=== PATIENT | female | born 1985 | race Caucasian/White ===

== ENCOUNTER 2021-08-29 14:20 | Emergency (ER) | payer OTHER, SELFPAY ==
--- NOTE | 2021-08-29 14:27 | ED.URI ---
HPI - URI/Sore Throat General Chief Complaint: Upper Respiratory Infection Stated Complaint: bodyache,runny nose,throat irritation Time Seen by Provider: 08/29/21 14:27 Source: patient and RN notes reviewed History of Present Illness [facility] Narrative: Patient is a 36-year-old female presents the urgent care with complaints of body aches, runny nose and sore throat. Patient states her symptoms started on Monday. States that her daughter was diagnosed with influenza B last week. Patient has been using [id number] Tylenol/ibuprofen/decongestion as needed for symptom relief. Patient reports of a very mild cough. Denies any shortness of breath or chest pain. Denies any known exposures to Covid or strep. Patient is Covid vaccinated. No other acute complaints. No acute distress noted. Patient read the plan of care. Some parts of this dictation were generated by voice recognition software and may contain typographical and/or grammatical inaccuracies. Related Data Home Medications Medication Instructions Recorded Confirmed albuterol sulfate 1 mcg INHALATION DIRECTED 08/29/21 08/29/21 fexofenadine [Sherly] 60 mg PO DAILY 08/29/21 08/29/21 lactobacillus combination no.8 1 cell DAILY 08/29/21 08/29/21 [Adult Probiotic] montelukast 10 mg DAILY 08/29/21 08/29/21 norethindrone-e.estradiol-iron [Lo 1 tablet DAILY 08/29/21 08/29/21 Loestrin Fe] Allergies Allergy/AdvReac Type Severity Reaction Status Date / Time No Known Allergies Allergy Verified 08/29/21 14:54 Review of Systems Review of Systems: CONSTITUTIONAL: Denies fever, chills, or sweats. EYES: Denies visual changes, redness, or discharge. ENT: Reports of sore throat and runny nose CARDIOVASCULAR: Denies chest pain, palpitations, or edema. RESPIRATORY: Reports a mild cough without dyspnea GASTROINTESTINAL: Denies abdominal pain, nausea, vomiting, or diarrhea. GENITOURINARY: Denies dysuria or hematuria. SKIN: Denies rash or itching. MUSCULOSKELETAL: Denies back pain, joint pain. Reports body aches NEUROLOGIC: Denies headache, numbness, or weakness. All other systems reviewed are negative, except as documented in HPI. [facility] Family History Family History (Updated 12/09/16 @ 23:56 by DOCTOR UNKNOWN) Father Hypertension Family history of lung cancer, Onset Age: 52 Patient's father is Grandparent Family history of lung cancer, Onset Age: 79 Family history of malignant neoplasm of breast, Onset Age: 61 Diabetes mellitus Social History Social History Smoking status: Former smoker Second hand tobacco smoke exposure: No Smoking end date: 09/04/11 Alcohol intake: never Comments At the time of my signature, I reviewed and agree with the nursing past medical, surgical, social, and family history. There is no relevant family history pertinent to the patient complaint. Exam Narrative: GENERAL: This is a well-nourished, well-developed patient, in no apparent distress. HEAD: normocephalic, atraumatic. EYES: PERRL. Sclera clear/white. Vision is grossly intact. EARS: External ears normal, auditory canals clear and without drainage, TMs normal without perforation. Hearing grossly intact. NOSE: External nose normal with no obvious nasal discharge, nares without redness, clear rhinorrhea. THROAT: Mucous membranes moist, posterior pharynx clear. Mild postnasal drainage NECK: Neck supple CARDIOVASCULAR: Regular rate and rhythm without murmurs, gallops, or rubs. RESPIRATORY: Clear to auscultation. Breath sounds equal bilaterally. No wheezes, rales, or rhonchi. SKIN: warm, intact with no suspicious lesions or rash, good texture and turgor. NEURO: awake, alert, and oriented to person, place and time. There were no obvious focal neurologic abnormalities. EXTREMITIES: No clubbing, cyanosis, or edema. Course Vital Signs Vital signs: Vital Signs Temperature 97.9 F 08/29/21 14:40 Pulse Rate 105 H 08/29/21 14:40 Respirato
[2021-08-29 14:40] VITALS: BP 142/82; PULSE 105; RESP 18; TEMP 36.6; O2SAT 100
== END 2021-08-29 15:27 | disposition home or self-care (01) ==
PROVIDERS: Emergency Provider Nurse Practitioner Family; PCP Nurse Practitioner Adult Health
DX: J06.9 Acute upper respiratory infection, unspecified (principal); Z87.891 Personal history of nicotine dependence; J45.909 Unspecified asthma, uncomplicated
CPT/HCPCS: 87081; 87804; 87880; 99213; G0463